=== PATIENT | male | born 1960 | race African-American/Black ===

== ENCOUNTER 2018-11-09 17:16 | Emergency (ER) | payer OTHER ==
[~2018-11-09] VITALS: Ht 167.6 cm; Wt 60.0 kg
[2018-11-09 17:19] VITALS: Ht 167.6 cm; Wt 60.0 kg
[2018-11-09] MEDS ORDERED: SOD CHLORIDE 0.9% 1,000 ML IV STA (17:35)
[2018-11-09 18:10] VITALS: BP 113/76; PULSE 87; RESP 18
[2018-11-09] MEDS ORDERED: TRA100 PO (18:36)
[2018-11-09] MEDS ORDERED: BEN25 PO (18:37)
--- NOTE | 2018-11-09 19:03 | ERD ---
ER Documentation Chief Complaint Chief Complaint near syncope while in the bathroom trying to have a bowel movement HPI 58-year-old gentleman who presents to the emergency room with a syncopal episode. The patient states that just prior to arrival he had a sudden drop episode of syncope. He told the nurse that he was trying to have a bowel movement and had a syncopal episode but he describes a different story to me. He states that he went to the bathroom he did not strain for very much at all and felt fine. He stood up washes hands and was walking back to the couch when he had sudden collapse. Patient did not describe a prodrome of chest pain or shortness of breath or headache or a prodrome of near syncope or sensation of syncope. He has a remote history of seizures but this was not a seizure. He recalls the events. He did not injure himself with the event. Accu-Chek in the field was reported to be normal. Patient denies any drug or alcohol use today. ROS All systems reviewed and are negative except as per history of present illness. Medications Home Meds Reported Medications Diphenhydramine Hcl* (Benadryl*) 25 Mg Cap, 25 MG PO Q6H PRN for PRN, CAP 11/09/18 Trazodone Hcl* (Trazodone Hcl*) 100 Mg Tablet, 100 MG PO QHS PRN for PRN, #30 TAB 11/09/18 Allergies Allergies: Coded Allergies: No Known Allergy (Unverified , 11/09/18) PMhx/Soc History of Surgery: No Anesthesia Reaction: No Hx Neurological Disorder: Yes (SEIZURES) Hx Respiratory Disorders: No Hx Cardiac Disorders: No Hx Psychiatric Problems: No Hx Miscellaneous Medical Probl: No Hx Alcohol Use: No Hx Substance Use: No Hx Tobacco Use: No Smoking Status: Never smoker FmHx Family History: No diabetes Physical Exam Vitals Vital Signs Date Temp Pulse Resp B/P (MAP) Pulse Ox O2 O2 Flow FiO2 Time Delivery Rate 11/09/18 97.8 88 18 111/88 97 Room Air 17:38 (96) 11/09/18 97.8 89 18 116/70 97 17:19 (85) Physical Exam General: Well developed, well nourished, no acute distress Head: Normocephalic, atraumatic. Eyes: Pupils equally reactive, EOM intact ENT: Moist mucous membranes Neck: Supple, no lymphadenopathy Respiratory: Lungs clear bilaterally, no distress Cardiovascular: RRR, no murmurs, rubs, or gallops Abdominal: Soft, non-tender, non-distended, no peritoneal signs : Deferred MSK: No edema, no unilateral swelling, 5/5 strength Neurologic: Alert and oriented, moving all extremities, normal speech, no focal weakness, no cerebellar signs Skin: No rash Psych: Normal mood Result Diagram: 11/09/18 1741 11/09/18 1741 Results 24 hrs Laboratory Tests Test 11/09/18 17:41 11/09/18 17:58 White Blood Count 5.7 10^3/ul Red Blood Count 4.06 10^6/ul Hemoglobin 13.6 g/dl Hematocrit 39.7 % Mean Corpuscular Volume 97.8 fl Mean Corpuscular Hemoglobin 33.5 pg Mean Corpuscular Hemoglobin Concent 34.3 g/dl Red Cell Distribution Width 13.8 % Platelet Count 174 10^3/UL Mean Platelet Volume 10.0 fl Immature Granulocytes % 0.400 % Neutrophils % % Lymphocytes % % Monocytes % % Eosinophils % % Basophils % % Nucleated Red Blood Cells % 0.0 /100WBC Immature Granulocytes # 0.020 10^3/ul Neutrophils # 10^3/ul Lymphocytes # 10^3/ul Monocytes # 10^3/ul Eosinophils # 10^3/ul Basophils # 10^3/ul Nucleated Red Blood Cells # 10^3/ul Sodium Level 141 mmol/L Potassium Level 4.0 mmol/L Chloride Level 100 mmol/L Carbon Dioxide Level 25 mmol/L Anion Gap 16 Blood Urea Nitrogen 7 mg/dl Creatinine 0.77 mg/dl Est Glomerular Filtrat Rate mL/min > 60 mL/min Glucose Level 95 mg/dl Calcium Level 9.6 mg/dl Troponin I < 0.012 ng/ml Bedside Glucose 82 mg/dL Current Medications Medications Dose Sig/Miki Start Time Status Last (Trade) Ordered Route PRN Stop Time Admin Dose Reason Admin Sodium 1,000 ml @ Q1H STAT 11/09/18 DC 11/09/18 Chloride 1,000 mls/hr IV 17:35 17:38 11/09/18 18:34 Procedures/MDM EKG, MONITORS, & DIAGNOSTIC IMAGING: EKG: I reviewed and interpreted a 12-lead EKG. Rhythm: Normal sinus rhythm ST Changes: No contiguous ST segment elevations T waves: No contiguous T wave inversions Impression: No evidence of acute cardiac ischemia LAB INTERPRETATION: I reviewed the laboratory testing and it shows no evidence of acute process MEDICAL DECISION MAKING: Patient describes an episode of syncope with no clear prodrome. Consider possible vagal episode but this appears to be temporarily from his bowel movement or bathroom process. I am concerned that the patient did not have any prodrome raising the concern for possible cardiac arrhythmia. He had no chest pain or shortness of breath to suggest ACS or PE. No headache to suggest subarachnoid hemorrhage. Patient is hemodynamically stable. The patient has no signs or symptoms concerning for head injury. No indication for CT imaging of the brain at this time. ER COURSE: * Laboratory testing is reassuring. The patient remained stable. 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 * All the patient is low risk based on the [place] syncope rule I am concerned about no clear prodrome to the patient's episode of syncope. I would recommend admission. He is a [facility] member and transfer would be appropriate. CONSULTATION: None DISPOSITION PLAN: Accepting care team and consultations: I discussed the current laboratory data, diagnostic imaging and emergency care provided. Admitting team: Dr. [place] Admitting team indication: Insurance directed Authorization number of [id number] Departure Diagnosis: Primary Impression: Syncope Syncope type: unspecified Qualified Codes: R55 - Syncope and collapse Condition: Stable MARIAH GUILLEN MD Nov 09, 2018 19:03
== END 2018-11-09 20:25 | disposition home or self-care (01) ==
LOC: E/R 17:16
DX: R55 Syncope and collapse (principal)
CPT/HCPCS: 36415; 71045; 80048; 82962; 84484; 85025; 93005; 99285; J7030